=== PATIENT | female | born 1955 | race Caucasian/White ===

== ENCOUNTER 2018-09-12 11:59 | Inpatient (IN) ==
--- NOTE | 2018-09-12 06:30 | History & Physical Report ---
Date of Service September 12, 2018 Assessment & Plan (1) Closed fracture of right proximal humerus: We will proceed with open reduction internal fixation versus reverse shoulder arthroplasty. I will first attempt to repair the fracture but if I am not happy with the bone quality of the humeral head or if there is splitting of the tuberosities then she is consented to proceed with a reverse shoulder arthroplasty. Postoperatively she will be placed in an arm sling and kept overnight for postoperative medical management. Present on Admission?: Yes History of Present Illness Primary Care Provider: Lewis Greenwood Cristopher Dietrich is a pleasant 62-year-old female who fell about 5 days ago injuring her right shoulder. She slipped on the ice and fell on her outstretched hand. She had immediate right shoulder pain and went to the [place] emergency room. X- rays demonstrated an impacted right proximal humerus fracture. She followed up with a traumatologist there and he was concerned that if he was unable to play the it would need a reverse shoulder replacement. She was then sent to my office for evaluation and treatment. Upon seeing her my office we talked about open reduction internal fixation versus reverse shoulder arthroplasty and she elected to proceed. Review of Systems All systems reviewed & are unremarkable except as noted in HPI & below Physical Exam 2 Musculoskeletal: On physical examination of the right shoulder, she is wearing a sling. Her radial median and ulnar nerves are all checked and intact at the wrist. Her axillary nerve was not checked. She has some ecchymosis around the shoulder. There are no abrasions, lesions, or lacerations around the skin. Results & Data Diagnostic Findings CAT scan of the right shoulder shows an impacted right proximal humerus fracture. It appears to be a 2 part fracture. I do not see any splitting of the tuberosities and the humeral head appears to be intact. X-rays of the right shoulder show an impacted right proximal humerus fracture. I do not see any splitting of the tuberosities. The humeral heads located within the glenoid.
[2018-09-12] MEDS ORDERED: ROPIVACAINE 0.5% HCL/PF 150 MG, BUPIVACAINE 0.5% MPF 30 ML, EPINEPHrine 30MG/30ML (OR U... INFIL ONE (13:30)
[2018-09-12] MEDS ORDERED: ROPIVACAINE 0.5% 5 MG/ML 30 ML VIAL ONE (14:04)
[2018-09-12] MEDS ORDERED: NEOSTIGMINE METHYLSULFATE 5 MG/5 ML SYR ONE (14:26)
[2018-09-12] MEDS ORDERED: fentaNYL citrate 100 MCG/2 ML VIAL ONE (14:26)
[2018-09-12] MEDS ORDERED: MIDAZOLAM HCL 1 MG/ML 2ML VIAL ONE (14:26)
[2018-09-12] MEDS ORDERED: ONDANSETRON INJ 2 MG/ML 2 ML VIAL ONE (14:26)
[2018-09-12] MEDS ORDERED: PROPOFOL IV EMULSION 10 MG/ML 20 ML VIAL IV ONE (14:26)
[2018-09-12] MEDS ORDERED: LIDOCAINE HCL 2% 2 ML VIAL/AMP(20MG/ML) INFIL ONE (14:26)
[2018-09-12] MEDS ORDERED: GLYCOPYRROLATE 0.2 MG/ML VIAL ONE (14:26)
[2018-09-12] MEDS ORDERED: DEXAMETHASONE SOD INJ 4 MG/ML VIAL ONE (14:26)
--- NOTE | 2018-09-12 14:26 | Anesthesiology Consultation ---
Date of Service September 12, 2018 Assessment & Plan (1) Encounter for pre-operative examination: Chart Review Chart Review: Acceptable Risk for Surgery and Patient NOT seen in Pre Admission Testing Consults Requested none NPO Date Last Intake of Fluids: 09/11/18 Time Last Intake of Fluids: 23:00 Date Last Intake of Solids: 09/11/18 Time Last Intake of Solids: 17:30 History Surgery Operation Date: 09/12/18 07:00 Proposed Procedures p Right Open Reduction Internal Fixation versus Reverse Total Shoulder Replacement - Hans Mancini DO Height/Weight Height: 5 ft 1 in Weight: 68.583 kg Allergies Allergy/AdvReac Type Severity Reaction Status Date / Time No Known Allergies Allergy Unverified 09/12/18 12:57 Medications Home Medications Medication Instructions Recorded Confirmed Last Taken atorvastatin 10 mg PO DAILY 09/12/18 09/12/18 09/11/18 22:00 glimepiride 4 mg PO QAM 09/12/18 09/12/18 09/10/18 09:00 insulin glargine [Lantus Solostar 20 units SUBCUT DAILY 09/12/18 09/12/18 23:00 U-100 Insulin] lisinopril 40 mg PO DAILY 09/12/18 09/12/18 09/11/18 22:00 Past Medical History Medical History Diabetes (Acute) Graves' disease in remission (Acute) History of pancreatic cancer (Acute) Hx of hysterectomy (Acute) Hyperlipidemia (Acute) Hypertension (Acute) Past Surgical History Surgical History Hx of umbilical hernia repair (Acute) Past Anesthesia History No Hx of Anesthesia Complications and No Family Hx of Anesthesia Complications History of PONV No Motion Sickness Screening History of Motion Sickness: No Social History Smoking Status: Never smoker Hx Alcohol Use: Yes Alcohol type: other alcohol intake frequency: holidays/special occasions only Hx Substance Use: No Physical Exam Vital Signs Last Vital Signs Temp 36.7 C 09/12/18 13:05 Pulse 79 09/12/18 13:05 Resp 20 09/12/18 13:05 BP 165/97 H 09/12/18 13:05 Pulse Ox 99 09/12/18 13:05 Testing Laboratory Results 09/12/18 12:56 POC Glucose 156 H
[2018-09-12] MEDS ORDERED: ONDANSETRON INJ 2 MG/ML 2 ML VIAL IV PRN ×2 (14:38→19:30)
[2018-09-12] MEDS ORDERED: ATROPINE SULFATE 0.1 MG/ML 10ML SYR IV PRN (14:38)
[2018-09-12] MEDS ORDERED: HYDROmorphone INJ 1 MG/ML SYRINGE IV PRN (14:38)
[2018-09-12] MEDS ORDERED: ePHEDrine sulfate 50 MG/ML AMP IV PRN (14:38)
[2018-09-12] MEDS ORDERED: fentaNYL citrate 100 MCG/2 ML VIAL IV PRN (14:38)
[2018-09-12] MEDS ORDERED: BACITRACIN INJ 50,000 UNIT VIAL ONE (14:43)
[2018-09-12] MEDS ORDERED: LACTATED RINGER'S 1,000 ML IV SCH (14:45)
--- NOTE | 2018-09-12 14:45 | History & Physical Bridge Note ---
Date of Service September 12, 2018 History & Physical Bridge Note I have examined the patient, reviewed the History & Physical and in the interval since the performance of the History & Physical I have noted the following changes of clinical significance: no changes noted
[2018-09-12] MEDS ORDERED: ACETAMINOPHEN 500 MG TAB ONE (15:03)
[2018-09-12] MEDS ORDERED: FAMOTIDINE 20 MG TAB ONE (15:04)
[2018-09-12] MEDS ORDERED: GABAPENTIN 300 MG CAP ONE (15:05)
[2018-09-12] MEDS ORDERED: LR 60ML/HR IV SCH (15:15)
[2018-09-12] MEDS ORDERED: CEFAZOLIN 2000MG 2,000 MG/15 ML SYR IV SCH (15:15)
[2018-09-12] MEDS ORDERED: FAMOTIDINE 20 MG TAB PO SCH (15:15)
[2018-09-12] MEDS ORDERED: ACETAMINOPHEN 500 MG TAB PO SCH (15:15)
[2018-09-12] MEDS ORDERED: GABAPENTIN 300 MG x 2 PO SCH (15:15)
[2018-09-12] MEDS ORDERED: TRANEXAMIC ACID 1,000 MG **IV Pre-op IV ONE (15:15)
[2018-09-12] MEDS ORDERED: TRANEXAMIC ACID 1,000 MG **IV Intra-op IV ONE (15:30)
[2018-09-12] MEDS ORDERED: POVIDONE-IODINE OP SOLN 30 ML BTL ONE (16:52)
--- NOTE | 2018-09-12 18:21 | Operative Report ---
Post Operative Report Pre & Post Diagnosis Operation Date: 09/12/18 07:00 Pre-Op Diagnosis: Right Proximal Humerus Fracture Post-Op Diagnosis: Right Proximal Humerus Fracture Procedure Operation Date: 09/12/18 07:00 Actual Procedures p Right fracture reverse total shoulder replacement (Left) - Hans Mancini DO Surgeon Hans Mancini DO Loan Secretary Gary Montero PAC Estimated Blood Loss 300 Findings Consistent with Post-Op Diagnosis Specimens Right humeral head Complications none Disposition Disposition: Recovery Room Indications Kaur is a pleasant 62-year-old female who fell hard on the ice about 5 days ago. She sustained a right proximal humerus fracture. There was significant impaction. After discussions with her and her , we decided to attempt an open reduction internal fixation however, if that failed, we would proceed with a reverse right shoulder arthroplasty. Description of Procedure Implants used: I used a [employer] Comprehensive fracture reverse total shoulder arthroplasty system with a size 8 press fit fracture humeral stem, a standard humeral tray and a +3 humeral bearing, a 25 mm mini baseplate with a 6.5 mm central screw and superior and inferior locking screws, and a size 36 mm eccentric glenosphere. The patient arrived at [facility] for the above procedure. There were seen in the preoperative holding area and the operative extremity was identified and signed. They were given a preoperative antibiotic and an interscalene nerve block. They were taken back to the operating room, laid on table in supine position, and put under general anesthesia. They were then put into the beachchair position. The shoulder was then prepped and draped in sterile fashion. A timeout was done and the patient in the operative extremity was properly identified. A deltopectoral approach was used. Dissection was taken down through the fascia and the deltoid was retracted laterally and the conjoined tendon was retracted medially. The anterior shoulder was exposed. An attempt was made to open reduction internal fixation. Fluoroscopy was brought in. I pulled traction on the arm and spent significant time trying to lined up the fracture. I then placed a proximal humeral locking plate on the side and put multiple K wires in it to try to hold reduction. Once I was able to get appropriate reduction on fluoroscopy I noticed there was a significant void in the humeral head. I did not think the void could be supported with bone grafting I thought that ultimately an open reduction internal fixation would fail. At that point I decided to proceed with a reverse right shoulder arthroplasty. The long head of the biceps tendon was tenodesed to the upper border of the pectoralis major. The biceps groove was then split between the greater and lesser tuberosities. The humeral head was removed. The tuberosities were rongeured back to small stable pieces of bone. Multiple #5 FiberWire sutures were passed around the greater tuberosity for later repair. The glenoid guide was then placed in the inferior aspect of the glenoid. A 3.2 mm Steinmann pin was then placed into the glenoid vault at 10 of inclination. The glenoid baseplate was then reamed. The final size 25 mm mini baseplate was then impacted in the place. A 6.5 mm central screw was then placed followed by superior and inferior locking screws. A 36 mm eccentric glenoid sphere was then impacted into place. Surrounding soft tissues were then injected with 100 cc an orthopedic pain control cocktail. The proximal humerus was then exposed. Sequential reaming of the humerus up to a size 8 mm reamer was done. A humeral trial was placed. A +3 humeral tray was trialed. The shoulder was reduced and brought through full range of motion. It was felt to be stable. The humeral trial was removed and the final size 8 press-fit fracture stem was then impacted into place. A +3 humeral bearing was snapped onto the humeral tray and the ring lock mechanism was engaged. The humeral tray was then impacted onto the humeral stem. The shoulder was reduced. The shoulder was brought through full range of motion and felt to be stable. 6 #5 FiberWire sutures were passed around the prosthesis and around the greater and lesser tuberosities. I was able to get a real nice repair of the tuberosities around the prosthesis. 3 #2 FiberWire sutures were placed in the rotator interval. The shoulder was brought through full range of motion and felt to be stable. The axillary nerve was palpated. A dilute betadyne lavage was then done for 3 minutes. The joint was then irrigated with normal saline solution. Hemostasis was obtained. The skin was then closed with 2-0 Vicryl, 3-0V lock suture, and mera. A soft dressing and a regular arm sling was placed. The patient was then extubated and transferred to a hospital bed. They were taken to the postanesthesia care unit in stable condition. They tolerated the procedure well. I attest to the content of the Intraoperative Record and any orders documented therein. Any exceptions are noted below.
--- NOTE | 2018-09-12 18:53 | XRay Report ---
XR shoulder RT min 2V routine CLINICAL HISTORY: 62 years-old Female presenting with Post shoulder surgery. TECHNIQUE: Frontal and transscapular Y views of the right shoulder were obtained. COMPARISON: 09/11/2018. FINDINGS: There has been interval reverse right total shoulder arthroplasty for the humeral neck fracture. Skin mera in place. Expected soft tissue emphysema. No malalignment. No periprosthetic fracture allowi ng for the limited views. Displaced greater tuberosity fracture fragment noted. Visualized portion of the right lung with basilar opacity and mildly low lung volume. IMPRESSION: 1. Expected postsurgical appearance status post reverse right total shoulder arthroplasty. 2. Suspected bibasilar atelectasis. Electronically signed by: Richard Becker M.D. 09/12/2018 6:51 PM
--- NOTE | 2018-09-12 19:09 | Anesthesiology Progress Note ---
Date of Service September 12, 2018 Anesthesia Post Procedure Vital Signs Vital Signs: Temp Pulse Pulse Resp BP Pulse Ox 09/12/18 19:05 97.2 F L 84 21 155/86 H 96 09/12/18 18:55 86 19 159/83 H 93 09/12/18 18:45 88 23 154/84 H 100 09/12/18 18:35 88 21 156/83 H 99 09/12/18 18:27 97.3 F L 82 19 146/89 H 99 09/12/18 13:05 98.1 F 79 20 165/97 H 99 Notes Mental Status: alert / awake / arousable and participated in evaluation Patient Amnestic to Procedure: Yes Nausea / Vomiting: adequately controlled Pain: adequately controlled Airway Patency, RR, SpO2: stable & adequate BP & HR: stable & adequate Hydration State: stable & adequate Anesthetic Complications: no major complications apparent and Pt Satisfied with anesthetic care
[2018-09-12] MEDS ORDERED: BISACODYL 10 MG SUPP PR PRN (19:30)
[2018-09-12] MEDS ORDERED: SODIUM CHLORIDE 0.9% 1000ML 1,000 ML IV SCH (19:30)
[2018-09-12] MEDS ORDERED: NALOXONE HCL 0.4 MG/1 ML VIAL/CARP IV PRN (19:30)
[2018-09-12] MEDS ORDERED: HYDROmorphone INJ 0.5 MG/0.5 ML SYR IV PRN (19:30)
[2018-09-12] MEDS ORDERED: MAGNESIUM HYDROXIDE SUSP 30 ML UDC PO PRN (19:30)
[2018-09-12] MEDS ORDERED: METOCLOPRAMIDE HCL INJ 5 MG/ML 2 ML VIAL IV PRN (19:30)
[2018-09-12] MEDS ORDERED: OXYCODONE HCL IR 5 MG TAB (IMMEDIATE RELEASE) PO PRN (19:30)
[2018-09-12] MEDS ORDERED: PHARMACY GLYCEMIC MGMT CONSULT PRN (19:44)
[2018-09-12] MEDS ORDERED: GLUCOSE 40% GEL 15 GM TUBE PO PRN (19:51)
[2018-09-12] MEDS ORDERED: DEXTROSE 50% 50 ML SYRINGE IV PRN (19:51)
[2018-09-12] MEDS ORDERED: GLUCOSE 10 TABS/TUBE PO PRN (19:51)
[2018-09-12] MEDS ORDERED: GLUCAGON FOR INJ 1 MG VIAL IM PRN (19:51)
[2018-09-12] MEDS ORDERED: CARBOHYDRATES FOR HYPOGLYCEMIA PO PRN (19:51)
[2018-09-12] MEDS ORDERED: SENNA 8.6 MG TAB PO SCH (21:00)
[2018-09-12] MEDS: DOCUSATE SODIUM 100 MG CAP PO SCH (21:13)
[2018-09-12] MEDS: KETOROLAC TROMETHAMINE 15 MG/ML VIAL IV SCH (21:13)
[2018-09-12] MEDS: ACETAMINOPHEN 500 MG TAB PO SCH (21:16)
[2018-09-12] MEDS: INSULIN ASPART 100 UNITS/ML 3 ML PEN SC SCH (21:18)
[2018-09-12] MEDS ORDERED: INSULIN GLARGINE SOLOSTAR 100 UNITS/ML 3 ML PEN SC ONE (22:00)
[2018-09-13] MEDS: KETOROLAC TROMETHAMINE 15 MG/ML VIAL IV SCH ×2 (01:16→08:58)
[2018-09-13] MEDS: CEFAZOLIN 1000MG 1,000 MG/7.5 ML SYR IV SCH ×2 (01:16→10:55)
[2018-09-13] MEDS ORDERED: INSULIN ASPART 100 UNITS/ML 3 ML PEN SC SCH (02:00)
[2018-09-13] MEDS: ACETAMINOPHEN 500 MG TAB PO SCH ×2 (05:30→14:37)
[2018-09-13 07:24] LABS: Basophils # (auto) 0.02 K/uL (0-0.2); Basophils % (auto) 0.1 %; Hematocrit (blood only) 31.5 % (37-47); Hemoglobin 9.9 g/dL (12.0-16.0); Immature Granulocytes # (auto) 0.05 K/uL (0.00-0.02); Immature Granulocytes % (auto) 0.3 %; Lymphocytes # (auto) 1.68 K/uL (1.2-3.4); Mean Corpuscular Hgb Conc 31.4 g/dL (32-36); Mean Corpuscular Volume 94.3 fL (80-100); Mean Platelet Volume 10.2 fL (7.4-10.4); Monocytes # (auto) 1.34 K/uL (0.11-0.59); Monocytes % (auto) 7.1 %; Neutrophils # (auto) 15.68 K/uL (1.4-6.5); Neutrophils % (auto) 83.5 %; Platelet Count 352 K/uL (130-400); RDW Standard Deviation 45.1 fL (36.4-46.3); Red Blood Count 3.34 M/uL (4.2-5.4); White Blood Count 18.77 K/uL (4.8-10.8)
[2018-09-13 07:52] LABS: Calcium 8.1 mg/dl (8.5-10.1); Creatinine Clr Calc Pharmacy 44.4 ml/min; Est GFR (African American) 58.6; Est GFR (Non-African American) 50.6; Potassium 4.3 mmol/L (3.5-5.1)
[2018-09-13] MEDS ORDERED: COUGH DROP (SUGAR FREE) LOZ 24 LOZ/1 BOX BUCCAL ONE (08:01)
[2018-09-13] MEDS ORDERED: INSULIN GLARGINE SOLOSTAR 100 UNITS/ML 3 ML PEN SC ONE (08:15)
--- NOTE | 2018-09-13 08:20 | Anesthesiology Progress Note ---
Date of Service September 13, 2018 Anesthesia Post Procedure Vital Signs Vital Signs: Temp Pulse Pulse Resp BP Pulse Ox 09/13/18 07:35 36.7 C 78 20 142/76 H 94 09/13/18 03:28 37 C 83 16 129/77 97 09/12/18 22:59 93 09/12/18 22:50 36.5 C 87 16 129/79 97 09/12/18 22:23 36.4 C L 88 16 146/82 H 97 09/12/18 21:25 36.4 C L 83 16 135/76 96 09/12/18 20:21 36.6 C 83 18 136/74 97 09/12/18 19:35 36.6 C 84 16 147/79 H 96 09/12/18 19:20 36.7 C 88 14 153/79 H 95 09/12/18 19:05 36.2 C L 84 21 155/86 H 96 09/12/18 18:55 86 19 159/83 H 93 09/12/18 18:45 88 23 154/84 H 100 09/12/18 18:35 88 21 156/83 H 99 09/12/18 18:27 36.3 C L 82 19 146/89 H 99 09/12/18 13:05 36.7 C 79 20 165/97 H 99 Notes Mental Status: alert / awake / arousable and participated in evaluation Nausea / Vomiting: adequately controlled Pain: adequately controlled Airway Patency, RR, SpO2: stable & adequate BP & HR: stable & adequate Hydration State: stable & adequate
--- NOTE | 2018-09-13 08:22 | Anesthesiology Progress Note ---
Date of Service September 13, 2018 Anesthesia Post Procedure Vital Signs Vital Signs: Temp Pulse Pulse Resp BP Pulse Ox 09/13/18 07:35 36.7 C 78 20 142/76 H 94 09/13/18 03:28 37 C 83 16 129/77 97 09/12/18 22:59 93 09/12/18 22:50 36.5 C 87 16 129/79 97 09/12/18 22:23 36.4 C L 88 16 146/82 H 97 09/12/18 21:25 36.4 C L 83 16 135/76 96 09/12/18 20:21 36.6 C 83 18 136/74 97 09/12/18 19:35 36.6 C 84 16 147/79 H 96 09/12/18 19:20 36.7 C 88 14 153/79 H 95 09/12/18 19:05 36.2 C L 84 21 155/86 H 96 09/12/18 18:55 86 19 159/83 H 93 09/12/18 18:45 88 23 154/84 H 100 09/12/18 18:35 88 21 156/83 H 99 09/12/18 18:27 36.3 C L 82 19 146/89 H 99 09/12/18 13:05 36.7 C 79 20 165/97 H 99 Notes Mental Status: alert / awake / arousable Patient Amnestic to Procedure: Yes Nausea / Vomiting: adequately controlled Pain: adequately controlled Airway Patency, RR, SpO2: stable & adequate BP & HR: stable & adequate Hydration State: stable & adequate Anesthetic Complications: no major complications apparent
[2018-09-13] MEDS: DOCUSATE SODIUM 100 MG CAP PO SCH (08:56)
[2018-09-13] MEDS ORDERED: MULTIVITAMIN TAB PO SCH (09:00)
[2018-09-13] MEDS ORDERED: ATORVASTATIN 10 MG TAB PO SCH (09:00)
[2018-09-13] MEDS ORDERED: LISINOPRIL 40 MG TAB PO SCH (09:00)
[2018-09-13] MEDS: INSULIN ASPART 100 UNITS/ML 3 ML PEN SC SCH ×2 (09:04→13:20)
--- NOTE | 2018-09-13 09:30 | Orthopedic Progress Note ---
Date of Service September 13, 2018 Assessment & Plan (1) Closed fracture of right proximal humerus: Overall she is doing very well. She is participating well with physical therapy and she is not having much pain. I discussions with her in our office at bedside today. We will discharge her to home today. I do not start physical therapy for 6 weeks to give the tuberosities a chance to heal. I will see her in the office in 2 weeks. Present on Admission?: Yes Subjective Manjula was seen and examined at bedside this morning. Overall she is doing fairly well. She has not had much pain in the shoulder. She is already been up and ambulating with physical therapy. She has no complaints. Physical Exam 2 Vital Signs (Past 24 Hours): Last Vital Signs Temp 36.7 C 09/13/18 07:35 Pulse 78 09/13/18 07:35 Resp 20 09/13/18 07:35 BP 142/76 H 09/13/18 07:35 Pulse Ox 94 09/13/18 07:35 Musculoskeletal: On physical examination of the right shoulder, the dressing is clean and dry. She is wearing her sling as instructed. Her radial, median, and ulnar nerves are checked and intact at the wrist. Her axillary nerve was not checked yet. Results & Data Laboratory Results H & H 09/13/18 Range/Units 06:27 Hgb 9.9 L (12.0-16.0) g/dL Hct 31.5 L (37-47) % Diagnostic Findings Postoperative x-rays of the right shoulder show the prosthesis to be in anatomic alignment without any evidence of fracture, dislocation, or loosening.
--- NOTE | 2018-09-13 09:31 | Discharge Summary ---
Date of Service September 13, 2018 Admission HPI Per Admitting Provider Kaur is a pleasant 62-year-old female who fell about 5 days ago injuring her right shoulder. She slipped on the ice and fell on her outstretched hand. She had immediate right shoulder pain and went to the [place] emergency room. X- rays demonstrated an impacted right proximal humerus fracture. She followed up with a traumatologist there and he was concerned that if he was unable to play the it would need a reverse shoulder replacement. She was then sent to my office for evaluation and treatment. Upon seeing her my office we talked about open reduction internal fixation versus reverse shoulder arthroplasty and she elected to proceed. Specialty Data Orthopedic H & H 09/13/18 Range/Units 06:27 Hgb 9.9 L (12.0-16.0) g/dL Hct 31.5 L (37-47) % Discharge Data Consultations 09/12/18 19:30 Consult Case Management - Discharge Planning Routine Procedures Performed Operation Date: 09/12/18 07:00 Actual Procedures p Right reverse total shoulder replacement (Left) - Hans Mancini DO Hospital Course (1) Closed fracture of right proximal humerus: On September 12, 2018 Manjula arrived at [facility] and underwent a reverse right shoulder arthroplasty for fracture without complication. She had a general anesthetic and a right interscalene nerve block. Postoperatively she was placed in an arm sling and discharged to general orthopedic floors. Her hospital course is uneventful. On postop day #1 her H&H was stable and her pain was well controlled. She was able to ambulate well with physical therapy and do some range of motion exercises. She was discharged home. She will start physical therapy in 6 weeks. She will follow-up with orthopedics in 2 weeks. Discharge Instructions Home Medications Medication Instructions Recorded Confirmed atorvastatin 10 mg PO DAILY 09/12/18 09/12/18 glimepiride 4 mg PO QAM 09/12/18 09/12/18 insulin glargine [Lantus Solostar 20 units SUBCUT DAILY 09/12/18 09/12/18 U-100 Insulin] lisinopril 40 mg PO DAILY 09/12/18 09/12/18 Previous Rx's Medication Instructions Recorded hydrocodone-acetaminophen 1 tab PO Q6H PRN #40 tab 09/13/18
[2018-09-13 09:49] LABS: Estimated Average Glucose 214 mg/dl
--- NOTE | 2018-09-13 11:04 | Pharmacy Report ---
Pharmacy Glycemic Short Note 2 - Date of Service September 13, 2018 - Glycemic Short BSG Results (Last 24 hours): 09/12/18 09/12/18 09/13/18 12:56 20:52 01:35 Glucose POC Glucose 156 H 159 H 364 H* 09/13/18 09/13/18 09/13/18 01:37 06:27 08:14 Glucose 235 H POC Glucose 359 H* 212 H OUTPATIENT ANTIDIABETIC REGIMEN: * Lantus 20 units SQ HS * Glimepiride 4mg PO daily * A1c = 9.1% on 09/13/17 ASSESSMENT: * 62yo T2DM female with A1c above target range. Outpatient antidiabetic regimen will need adjusted at discharge. * Pt s/p POD#1 shoulder surgery. Pt received dexamethasone topically and IV which compounded her baseline poor control. * Pharmacy is currently titrating SQ basal bolus insulin regimen to maintain BSGs <200 mg/dl (ideally <150 mg/dl) to prevent post op complications PLAN FOR INPATIENT GLYCEMIC CONTROL: * Hold outpatient oral diabetes medications * Basal insulin * Additional 10 units of Lantus this morning for post-op steroid induced hyperglycemia. Pt received 25 units Lantus last evening + 9 units of NovoLog with suboptimal control. * Since dexamethasone should be wearing off in the next 24hrs will dose Lantus this evening based on BSG scale * BSG below 140mg/dl --> Lantus 25 units * BSG 140-180mg/dl --> Lantus 30 units * BSG above 180mg/dl --> Lantus 35 units * Bolus insulin * NovoLog per scale ACHS or Q6hrs while NPO * Goal Range: Low 110 mg/dL - High 140 mg/dL * Correction Factor: 25 mg/dL/unit * Nutritional / Prandial insulin per carb ratio of 1 unit per 8 grams CHO consumed PLAN FOR DISCHARGE: * TBD
[2018-09-13] MEDS ORDERED: INSULIN GLARGINE SOLOSTAR 100 UNITS/ML 3 ML PEN SC SCH (21:00)
[2018-09-14] MEDS ORDERED: INSULIN ASPART 100 UNITS/ML 3 ML PEN SC SCH
== END 2018-09-13 15:18 | disposition home or self-care (01) | DRG 483 ==
LOC: ASU 11:59 → 3W 18:24